=== PATIENT | female | born 1990 | race Two or more races ===

== ENCOUNTER 2019-11-06 18:44 | Inpatient (IN) | payer MEDICAID ==
[~2019-11-06] VITALS: Ht 149.9 cm; Wt 49.9 kg
[~2019-11-06 18:44] MED LIST: APRESOLINE50 MG ORAL; CARVEDILOL6.25 MG ORAL; COREG25 MG ORAL; FUROSEMIDE40 MG ORAL; HYDRALAZINE HCL10 MG ORAL; NORVASC5 MG ORAL; RENVELA800 MG ORAL
--- NOTE | 2019-11-06 19:01 | NUR ---
ED Nurse Note: Pt was brought to ed on ; pt used her own wheel chair to get into ed. pt has a julianne cath on upper right chest and a right femoral picc line. pt dialsysis schedule ; pt missed saturday diaylsis appointment. pt report bilateral leg pain. edema noted on both lower extremies. pt is irritable.
[2019-11-06 19:03] VITALS: BP 151/111
--- NOTE | 2019-11-06 19:05 | NUR ---
HAND-OFF: Report given to nabila neal.
--- NOTE | 2019-11-06 19:05 | NUR ---
ED Nurse Note: abdomen distended. pt has history of peritonitis
--- NOTE | 2019-11-06 19:13 | Emergency Room Report ---
History of Present Illness General Chief Complaint: Edema Source: Patient Present Illness HPI Disclaimer: Please note that this report is being documented using DRAGON technology. This can lead to erroneous entry secondary to incorrect interpretation by the dictating instrument. HPI: 29-year-old female with a history of ESRD on hemodialysis MWF presents for evaluation of lower extremity pain and edema. Patient missed dialysis on Saturday has not had a for 4 days. She notes a bilateral lower extremity pain and swelling. Difficulty with ambulating. Also notes a distended and diffusely tender abdomen. She is complaining of some chest pain shortness of breath though she believes this is related to the distention in her abdomen. She has a history of ascites and has had SBP in the past. Has not had peritoneal dialysis for over a year according to patient. States she missed her dialysis because she could not arrange transportation. Denies fever, chills. Reports fatigue. Denies back pain, vomiting or diarrhea. PMH: ESRD PSH: Dialysis catheters Allergies: Toradol, Zosyn, tramadol, ceftriaxone Social Hx: Reviewed Allergies: Coded Allergies: METRONIDAZOLE (Verified Allergy, Intermediate, 06/24/19) Severe itching, SOB and swelling PIPERACILLIN (Verified Allergy, Intermediate, Itching, 06/24/19) Severe itching, SOB and swelling TAZOBACTAM (Verified Allergy, Intermediate, Itching, 06/24/19) Severe itching, SOB and swelling CEFTRIAXONE (Verified Allergy, Unknown, 06/23/19) KETOROLAC (Verified Allergy, Unknown, 06/23/19) TRAMADOL (Verified Allergy, Unknown, 06/23/19) Uncoded Allergies: contrast-oral and dye (Allergy, Severe, 06/29/19) seizures COVID-19 Screening Contact w/high risk pt: No Recent Travel to affected area: No Experienced COVID-19 symptoms?: No COVID-19 Testing performed SENIOR TELECOMMUNICATIONS TECHNICIAN: No Nursing Documentation-PMH Hx Hypertension: Yes Hx Dialysis: Yes - KIDNEY DISEASE Hx Seizures: Yes Review of Systems All Other Systems: negative except mentioned in HPI Physical Exam Vital Signs Date Time Temp Pulse Resp B/P (MAP) Pulse Ox O2 Delivery O2 Flow Rate FiO2 11/06/19 18:55 98.1 93 16 151/111 (124) 100 Room Air General: Awake and alert, no acute distress HEENT: NC/AT. EOMI. Chest wall: Dialysis catheter present in right chest. Cardiovascular: RRR. S1 and S2 normal. No murmur appreciated Resp: Normal work of breathing. No cough, wheezing or crackles appreciated Abdomen: Abdomen is significantly distended with bulging umbilicus that is easily reducible. Tense. Only mildly tender. Skin: Intact. No abrasions, laceration or rash over the exposed skin MSK: Normal tone and bulk. Moving all extremities. No obvious deformity. Neuro: Awake and alert. Mentating appropriately. Medical Decision Making Diagnostic Impression: Primary Impression: Ascites Additional Impressions: ESRD (end stage renal disease) on dialysis Hyperkalemia Volume overload ER Course 29-year-old female with a history of ESRD presents for evaluation of abdominal distention and pain as well as lower extremity swelling after missing dialysis this week. Concern for electrolyte abnormalities, peritonitis, fluid overload state as well as ACS, arrhythmia, pneumonia, bronchitis, liver failure to name a few. Bedside ultrasound of the abdomen shows moderate ascites. Patient initially consented and was agreeable to paracentesis to evaluate for SBP with then refused prior to procedure start. She is afebrile and I have little concern for SBP aside from patient's previous history and paracentesis also meant to be therapeutic as I believe her shortness of breath is likely related to her significant abdominal distention. Her last paracentesis was several weeks ago. Labs show slight elevation in potassium will be treated with calcium , insulin with dextrose. Patient states she is unable to have hemodialysis at her outpatient facility tomorrow. Will admit for further care and dialysis here. Laboratory Tests Test 11/06/19 19:17 White Blood Count 5.2 K/UL (4.8-10.8) Red Blood Count 2.86 M/UL (4.20-5.40) L Hemoglobin 8.7 G/DL (12.0-16.0) L Hematocrit 29.4 % (37.0-47.0) L Mean Corpuscular Volume 103 FL (80-99) H Mean Corpuscular Hemoglobin 30.6 PG (27.0-31.0) Mean Corpuscular Hemoglobin Concent 29.8 G/DL (32.0-36.0) L Red Cell Distribution Width 16.3 % (11.6-14.8) H Platelet Count 178 K/UL (150-450) Mean Platelet Volume 7.7 FL (6.5-10.1) Neutrophils (%) (Auto) 67.1 % (45.0-75.0) Lymphocytes (%) (Auto) 21.7 % (20.0-45.0) Monocytes (%) (Auto) 10.6 % (1.0-10.0) H Eosinophils (%) (Auto) 0.0 % (0.0-3.0) Basophils (%) (Auto) 0.6 % (0.0-2.0) Prothrombin Time 12.9 SEC (9.30-11.50) H Prothrombin Time INR 1.2 (0.9-1.1) H Activated Partial Thromboplast Time 32 SEC (23-33) Sodium Level 140 MMOL/L (136-145) Potassium Level 5.3 MMOL/L (3.5-5.1) H Chloride Level 102 MMOL/L (98-107) Carbon Dioxide Level 22 MMOL/L (21-32) Anion Gap 16 mmol/L (5-15) H Blood Urea Nitrogen 88 mg/dL (7-18) H Creatinine 10.0 MG/DL (0.55-1.30) H Estimated Glomerular Filtration Rate 4.6 mL/min (>60) Glucose Level 107 MG/DL (74-106) H Calcium Level 8.6 MG/DL (8.5-10.1) Total Bilirubin 0.5 MG/DL (0.2-1.0) Aspartate Amino Transferase (AST) 25 U/L (15-37) Alanine Aminotransferase (ALT) 16 U/L (12-78) Alkaline Phosphatase 274 U/L (46-116) H Troponin I 0.123 ng/mL (0.000-0.056) Pro-B-Type Natriuretic Peptide Pending Total Protein 6.2 G/DL (6.4-8.2) L Albumin 2.6 G/DL (3.4-5.0) L Globulin 3.6 g/dL Albumin/Globulin Ratio 0.7 (1.0-2.7) L EKG Diagnostic Results EKG Time: 19:11 Rate: normal Rhythm: NSR ST Segments: no acute changes Other Impression Sinus rhythm, normal axis, slightly prolonged QTC at 41 ms, T wave flattening inferior lateral leads. Mild peaking of T waves in the precordial leads. Rhythm Strip Diag. Results Rhythm Strip Time: 19:11 EP Interpretation: yes Rate: 80s Rhythm: NSR, no PVC's, no ectopy Last Vital Signs Date Time Temp Pulse Resp B/P (MAP) Pulse Ox O2 Delivery O2 Flow Rate FiO2 11/06/19 19:03 93 16 Room Air 11/06/19 19:03 98.1 151/111 100 Referrals: [facility],REFERRING (PCP) Gerald Benitez MD November 06, 2019 19:13
--- NOTE | 2019-11-06 19:30 | NUR ---
ED Nurse Note: pt falls asleep on exam, appears drowsy
--- NOTE | 2019-11-06 19:35 | NUR ---
ED Nurse Note: pt repeatedly calls for nurse, requesting pain meds. ERMD and RN have explained to pt plan of care multiple times, pt continues to call for nurse and ask for pain medication.
[2019-11-06 19:36] LABS: BASOPHILS % (AUTO) 0.6 % (0.0-2.0); HEMATOCRIT 29.4 % (37.0-47.0); HEMOGLOBIN 8.7 G/DL (12.0-16.0); LYMPHOCYTES % (AUTO) 21.7 % (20.0-45.0); MEAN CORPUSCULAR VOLUME 103 FL (80-99); MONOCYTES % (AUTO) 10.6 % (1.0-10.0); NEUTROPHILS % (AUTO) 67.1 % (45.0-75.0); PLATELET COUNT 178 K/UL (150-450); RED BLOOD COUNT 2.86 M/UL (4.20-5.40); RED CELL DISTRIBUTION WIDTH 16.3 % (11.6-14.8); WHITE BLOOD COUNT 5.2 K/UL (4.8-10.8)
[2019-11-06 19:48] LABS: ANION GAP 16 mmol/L (5-15); BLOOD UREA NITROGEN 88 mg/dL (7-18); CALCIUM 8.6 MG/DL (8.5-10.1); CARBON DIOXIDE 22 MMOL/L (21-32); CHLORIDE 102 MMOL/L (98-107); POTASSIUM 5.3 MMOL/L (3.5-5.1); SODIUM 140 MMOL/L (136-145)
[2019-11-06 19:57] LABS: INR 1.2 (0.9-1.1)
--- NOTE | 2019-11-06 19:57 | NUR ---
ED Nurse Note: US and paracentesis set up at pt bedside per ERMD instruction
[2019-11-06 19:58] LABS: ALANINE AMINOTRANSFERASE 16 U/L (12-78); ALBUMIN 2.6 G/DL (3.4-5.0); ALBUMIN/GLOBULIN RATIO 0.7 (1.0-2.7); ALKALINE PHOSPHATASE 274 U/L (46-116); ASPARTATE AMINO TRANSFERASE 25 U/L (15-37); BILIRUBIN,TOTAL 0.5 MG/DL (0.2-1.0)
--- NOTE | 2019-11-06 20:00 | NUR ---
ED Nurse Note: pt signed consent form for paracentesis, still appears to be drowsy, VSS on monitoring analyst
[2019-11-06] MEDS ORDERED: Morphine Sulfate 4mg/ml Inj (IV USE ONLY) ONE (20:19)
[2019-11-06] MEDS ORDERED: Morphine Sulfate 4mg/ml Inj (IV USE ONLY) IVP ONE (20:30)
--- NOTE | 2019-11-06 20:30 | NUR ---
ED Nurse Note: pt refusing all swabs- VRE, CRE & MRSA. states that she is "in a lot of pain"
--- NOTE | 2019-11-06 20:40 | NUR ---
ED Nurse Note: pt refusing paracentesis, states she needs dilaudid. pt has been medicated with morphine 4 mg IV, appears to be drowsy
[2019-11-06] MEDS ORDERED: Insulin Human Regular 100units/ml 3ml IV ONE (21:00)
[2019-11-06] MEDS ORDERED: Calcium Gluconate 1gm/10ml vial IVP ONE (21:00)
--- NOTE | 2019-11-06 21:12 | NUR ---
ED Nurse Note: pt has a potassium level of 5.3, ERMD ordered dextrose, calcium gluconate and insulin as seen in eMAR,. pt refusing these medications stating "they give me a headache, a potassium of 5.3 is not high" pt was educated on risks of refusing meds. she verbalized understanding and continues to refuse meds
[2019-11-06 21:17] VITALS: BP 147/99
--- NOTE | 2019-11-06 21:48 | NUR ---
Face sheet, EKG, dictation and nurses notes faxed to Sara Gupta(leather case finisher) @[phone] as requested.
--- NOTE | 2019-11-07 | NUR ---
ED Nurse Note: report given to Tele Charge nurse DAVID Milian
[2019-11-07] MEDS ORDERED: Miralax 17gm pkt ORAL PRN (01:30)
[2019-11-07] MEDS ORDERED: Zolpidem 5mg tab ORAL PRN (01:30)
--- NOTE | 2019-11-07 01:30 | NUR ---
NURSE NOTES: Received patient from ED, Refused gown, refusing assessment, refused wearing a monitoring tech despite education regarding importance especially with potassium leveo
--- NOTE | 2019-11-07 01:40 | NUR ---
Nurse notes: Dr Schaeffer is only giving tylenol for pain. No MD order for a stronger pain med to be given, MD aware. Pt is upset that she is not receiving something stronger for pain. Educated pt that has ordered tylenol for pain
[2019-11-07 04:00] VITALS: BP 142/100
--- NOTE | 2019-11-07 08:05 | NUR ---
NURSE NOTES: pt sitting on wheel chair watching TV, AOx4. Pt is complaining of pain. Pt refusing to wear bi specialist. Bed in lowest position and locked, call light within reach. Will continue to monitor pt.
--- NOTE | 2019-11-07 08:40 | NUR ---
NURSE NOTES: pt is refusing to get vitals signs by HYDROLOGIC MODELER. RN asked to do vitals and she also refused.
--- NOTE | 2019-11-07 09:15 | NUR ---
NURSE NOTES: pt refused medication stating pills are too big. educated pt on medication and benefits but pt still refused. she also refused to eat breakfast and just had juice.
--- NOTE | 2019-11-07 11:21 | History & Physical ---
History and Physical History & Physicial HP dictated #[id number] Jose Schaeffer MD November 07, 2019 11:21
[2019-11-07] MEDS: Nephrovite tab (Rena-Vite) ORAL SCH (12:13)
[2019-11-07] MEDS: Morphine Sulfate 2mg/ml Inj(IV/IM USE ONLY) IVP PRN ×2 (12:14→16:38)
--- NOTE | 2019-11-07 12:14 | NUR ---
NURSE NOTES: Scanner is not working, had to manually administer med.
[2019-11-07 12:42] VITALS: BP 135/98
[2019-11-07] MEDS: Renvela 800mg Pkt ORAL SCH ×2 (13:00→14:11)
[2019-11-07 16:00] VITALS: BP_SYST 131; BP_SYST 142; BP_DIAS 63; BP_DIAS 93
--- NOTE | 2019-11-07 16:28 | Consultation ---
Consult Note Assessment/Plan Cardiology for Dr. Rios Full consult dictated # [id number] Юлия Ruff MD November 07, 2019 16:28
[2019-11-07] MEDS ORDERED: Morphine Sulfate 2mg/ml Inj(IV/IM USE ONLY) IVP SCH ×2 (18:30)
--- NOTE | 2019-11-07 18:30 | NUR ---
NURSE NOTES: pt started complaining of more pain and refused dialysis unless she gets a second dose of Morphine. pt is complaining of stomach ache and falling sleep at the same time. communicated to deepali Schaeffer and he ordered another dose of Morphin 2mg/ml once. pt started dialysis right after
--- NOTE | 2019-11-07 19:29 | NUR ---
HAND-OFF: copy of Report left for nurse Mary Jane?/ RN
--- NOTE | 2019-11-07 19:30 | NUR ---
NURSE NOTES: pt sitting up in bed,on her phone, AOx4. Pt is complaining of pain. Pt refusing to wear hematology nurse. Bed in lowest position and locked, alarm on, fall precautions in place. Patient appears drowsy at this time. call light within reach. Will continue to monitor pt. Dialysis was completed and dialysis nurse remove 2300 mL Pt requested dialysis to be discontinued because she said she felt dizzy. Vital signs are stable at this time
[2019-11-07 20:00] VITALS: BP 148/85
--- NOTE | 2019-11-07 21:29 | History and Physical Report ---
DATE OF ADMISSION: 11/06/2019 CHIEF COMPLAINT: Shortness of breath, abdominal pain, leg pain and chest pain. HISTORY OF PRESENT ILLNESS: This is a 29-year-old female with history of end-stage renal disease, on hemodialysis every Saturday, Saturday, and Saturday. Apparently, she received dialysis last Saturday, which is 4 days prior to admission. She missed dialysis on Saturday. Apparently, she was supposed to go to the new unit, but the transportation did not show up. The patient has been getting short of breath mostly with exertion. She has also orthopnea. She had also some chest pain. She says that when the blood pressure goes up, she did start getting chest pain. She has also leg swelling and pain and abdominal pain. She has had ascites before and in the emergency room, they offered paracentesis, however, she refused later because she said that she was scared. The patient was admitted for further care, especially dialysis. PAST MEDICAL HISTORY: The patient says that she used to be on peritoneal dialysis, but then there was a problem. They had to remove the catheter in. Since then, she has had developed ascites. I am still not sure what the etiology of ascites is. Nevertheless, the patient has had paracentesis before. She is being dialyzed through a hemodialysis catheter. Previously, she had a shunt under left arm, but it failed and she did not want to have a new one. The patient states that she had preeclampsia before. She had a son, which 3 months later. 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 She was apparently diagnosed when she was a teenager. History of seizures. MEDICATIONS: Reviewed in CS link. SOCIAL HISTORY: No history of smoking or alcohol use. The patient is and lives with . ALLERGIES: Reported to metronidazole, piperacillin, tazobactam, ceftriaxone, ketorolac, tramadol, and oral contrast. REVIEW OF SYSTEMS: As above. PHYSICAL EXAMINATION: GENERAL: The patient is a 29-year-old female, in no acute distress. She does have pain in her legs. VITAL SIGNS: Blood pressure 142/100, pulse is 98, temperature 97.9, respiratory is 20. HEENT: Pale conjunctivae. Anicteric sclerae. NECK: Supple. LUNGS: Clear to auscultation. HEART: S1, S2 without murmurs or rubs. ABDOMEN: Distended. The patient has a umbilical hernia. The patient has diffuse tenderness. EXTREMITIES: Bilateral pedal edema. LABORATORY DATA: The CBC shows elevated WBC of 5200, hematocrit 29.4, hemoglobin is 8.7, platelets 178,000. Sodium 140, potassium 5.3, chloride 102, CO2 22, BUN is 88, creatinine 10, glucose is 107, calcium is 8.6., and albumin is 2.6. ASSESSMENT: This is a 29-year-old female with end-stage renal disease, on hemodialysis, supposed to be on dialysis every Saturday, Saturday, and Saturday. She was dialysis last Saturday, last dialysis was 5 days ago. She has significant ascites on physical exam. Abdominal pain is likely from ascites. In addition, she is short of breath from fluid overload as well as ascites, which pushes toward her diaphragm. She has significant leg edema again consistent with fluid overload. She is anemic from chronic kidney disease. Iron deficiency needs to be ruled out. PLAN: The patient will be dialyzed today. Cardiology consult will be obtained to optimize certain medications. I will also ask GI to see the patient. She will need paracentesis if she agrees. She will be on Epogen. Iron panel will be checked. She will be on Nephro-Se daily. Plan was discussed with the patient as well as with the RN. Jose Schaeffer M.D. DR: Bakari JOB#: [id number] CC:
[2019-11-08] VITALS: BP 140/91
--- NOTE | 2019-11-08 00:44 | Consultation ---
DATE OF CONSULTATION: 11/07/2019 CARDIOLOGY CONSULTATION Coverage for Kristofer Rios MD REASON FOR CONSULT: Heart failure, status post ICD. HISTORY OF PRESENT ILLNESS: The patient is a 29-year-old woman with a history of end-stage renal disease, on chronic hemodialysis, history of ascites, previous peritonitis, hypertension, seizures, and heart failure, status post single-chamber ICD ([employer]) at [facility]. She is admitted with abdominal pain and tenderness as well as lower extremity pain, she had missed dialysis treatment. She was admitted for further treatment and Cardiology followup was requested. She denies chest pain or dyspnea. She denies palpitations, dizziness, or syncope. She does report having had recent shocks for rapid heartbeat. Records are not available, but it appears that these may have been inappropriate defibrillator shocks. MEDICATIONS: Epogen, subcutaneous heparin, Renvela, morphine, vitamin B, clonidine, Tylenol, Zofran, and Ambien. ALLERGIES: Listed are allergies to multiple antibiotics including ceftriaxone, metronidazole, piperacillin, and tazobactam as well as Toradol and tramadol, contrast dye. PAST MEDICAL HISTORY: As noted above. SOCIAL HISTORY: No history of alcohol, tobacco, or drug use. REVIEW OF SYSTEMS: As per HPI. PHYSICAL EXAMINATION: VITAL SIGNS: Blood pressure is 135/98, earlier today 142/100; pulse 80, regular; respirations 18; afebrile; and oxygen saturation 95% on room air. GENERAL: Alert, well-developed woman, in no acute distress. HEENT: Normocephalic and atraumatic. Pupils are equal, round, and reactive to light. Sclerae anicteric. Oral mucosa are moist. NECK: Supple. There is no jugular venous distention. CHEST: There is an ICD generator palpable in the left chest. Hemodialysis catheter in the right subclavian. LUNGS: Clear to auscultation bilaterally. HEART: Regular S1 and S2. No murmurs or S3. ABDOMEN: Distended, tender with a reducible 2 to 3 cm umbilical hernia. Positive ascites. Generalized abdominal tenderness. SKIN: No rashes or lesions. EXTREMITIES: No cyanosis, clubbing, or edema. NEUROLOGIC: Alert and oriented x3. No focal motor deficits. LABORATORY DATA: Hemoglobin 8.7, white cell count 5200, and platelets 178,000. Sodium 140, potassium 5.3, chloride 102, bicarb 22, BUN 88, creatinine 10. Troponin 0.123. IMAGING STUDIES: Chest x-ray shows a single-chamber ICD with a lead entering from the left subclavian into the right ventricular apex. There is cardiomegaly and possible left pleural effusion (ICD generator) overlying the left lower chest wall. EKG shows sinus rhythm, rate of 88 beats per minute. Normal axis and intervals. T-wave inversion in V5 through V6. No old EKG available for comparison. ASSESSMENT AND RECOMMENDATIONS: The patient is a 29-year-old woman with a history of multiple chronic medical issues as outlined above, who was admitted with abdominal pain and nausea after having missed dialysis treatments for a few days. She has ascites and abdominal tenderness. There is concern for peritonitis. This is being evaluated as per her primary team. With regard to her cardiac status, she does not appear with acute pulmonary congestion. She does have an implantable defibrillator and indicates previous shocks, possible inappropriate shocks recently. I will arrange for ICD interrogation and we will make further recommendations based on the results. She does have a mildly elevated troponin, but no ischemic changes on EKG. The troponin elevation may be due to chronic kidney disease and does not require further evaluation. I will obtain, however an echo, but no ischemic EKG changes or anginal symptoms. The elevated troponin may be due to chronic kidney disease. I will obtain an echo to assess left ventricular function and valves. Further recommendations will be made based on the results of above testing and her clinical course. Dr. Rios will continue to follow her starting 11/09/2019. Юлия Ruff M.D. DR: EDYTA JOB#: [id number] CC:
[2019-11-08] MEDS: Morphine Sulfate 4mg/ml Inj (IV USE ONLY) IVP PRN ×3 (01:02→13:54)
[2019-11-08] MEDS ORDERED: Heparin Sod 1000 units/ml 10ml IV PRN (01:30)
--- NOTE | 2019-11-08 07:45 | NUR ---
NURSE NOTES: pt sitting in bed and refusing awake overnight monitor even after education was done, explained to her how important this is and this is how we monitor her heart rhythm pt still insist on takin monitor off after we put it back on her. Pt also is refusing blood pressure assessment. After educating her on why we need V/s, she allowed PHARMACEUTICAL LABORATORY TECHNICIAN to do it. Call light within reach bed locked and in lowest position. Pt is not complaining of pain at this time. Will continue to monitor.
[2019-11-08 08:00] VITALS: BP_SYST 129; BP_SYST 147; BP_DIAS 107; BP_DIAS 53
--- NOTE | 2019-11-08 08:00 | NUR ---
HAND-OFF: Report given to DAVID Stewart.
--- NOTE | 2019-11-08 08:41 | General Progress Note ---
Assessment/Plan Problem List: (1) Anemia ICD Codes: D64.9 - Anemia, unspecified SNOMED: 818842572 (2) ESRD (end stage renal disease) on dialysis ICD Codes: N18.6 - End stage renal disease; Z99.2 - Dependence on renal dialysis SNOMED: 529227511 (3) Volume overload ICD Codes: E87.70 - Fluid overload, unspecified SNOMED: 35088810 (4) Ascites ICD Codes: R18.8 - Other ascites SNOMED: 692814918 (5) Abdominal pain ICD Codes: R10.9 - Unspecified abdominal pain SNOMED: 16502527 Assessment/Plan: ordered paracentesis and fluid analysis ? renal ascites will fu Subjective ROS Limited/Unobtainable: Yes Allergies: Coded Allergies: METRONIDAZOLE (Verified Allergy, Intermediate, 06/24/19) Severe itching, SOB and swelling PIPERACILLIN (Verified Allergy, Intermediate, Itching, 06/24/19) Severe itching, SOB and swelling TAZOBACTAM (Verified Allergy, Intermediate, Itching, 06/24/19) Severe itching, SOB and swelling CEFTRIAXONE (Verified Allergy, Unknown, 06/23/19) KETOROLAC (Verified Allergy, Unknown, 06/23/19) TRAMADOL (Verified Allergy, Unknown, 06/23/19) Uncoded Allergies: contrast-oral and dye (Allergy, Severe, 06/29/19) seizures Objective Last 24 Hour Vital Signs Date Time Temp Pulse Resp B/P (MAP) Pulse Ox O2 Delivery O2 Flow Rate FiO2 11/08/19 08:00 97.7 81 20 147/107 (120) 95 11/08/19 05:39 97.0 11/08/19 04:00 90 11/08/19 02:09 89 11/08/19 00:00 98.1 84 17 140/91 (107) 98 11/07/19 22:02 95 11/07/19 21:00 Room Air 11/07/19 20:00 77 18 148/85 (106) 11/07/19 16:00 97.0 86 18 142/93 (109) 99 11/07/19 12:42 97.3 80 18 135/98 (110) 95 11/07/19 09:00 Room Air Intake and Output 11/07/19 11/08/19 19:00 07:00 Intake Total 500 ml Output Total 4000 ml Balance 500 ml -4000 ml Intake Oral 500 ml Hemodialysis UF 4000 ml # Voids 1 # Bowel Movements 1 Laboratory Tests 11/07/19 09:00: Hepatitis B Surface Antigen [Pending] Height (Feet): 4 Height (Inches): 11.00 Weight (Pounds): 98 General Appearance: alert EENT: pale conjunctivae Neck: supple Cardiovascular: normal rate Respiratory/Chest: decreased breath sounds Abdomen: soft, hypoactive bowel sounds, distended Extremities: non-tender Liu Lai MD November 08, 2019 08:41
[2019-11-08] MEDS: Morphine Sulfate 2mg/ml Inj(IV/IM USE ONLY) IVP PRN ×3 (09:22→22:03)
[2019-11-08] MEDS: Renvela 800mg Pkt ORAL SCH ×3 (09:22→17:56)
[2019-11-08] MEDS: Nephrovite tab (Rena-Vite) ORAL SCH (09:22)
[2019-11-08 09:39] LABS: % IRON SATURATION 41 % (15-50); IRON 68 ug/dL (50-175); TOTAL IRON BINDING CAPACITY 165 ug/dL (250-450)
[2019-11-08 10:01] LABS: ALANINE AMINOTRANSFERASE 14 U/L (12-78); ALBUMIN 2.5 G/DL (3.4-5.0); ALBUMIN/GLOBULIN RATIO 0.6 (1.0-2.7); ALKALINE PHOSPHATASE 271 U/L (46-116); ANION GAP 15 mmol/L (5-15); ASPARTATE AMINO TRANSFERASE 19 U/L (15-37); BILIRUBIN,TOTAL 0.4 MG/DL (0.2-1.0); BLOOD UREA NITROGEN 79 mg/dL (7-18); CALCIUM 7.5 MG/DL (8.5-10.1); CARBON DIOXIDE 25 MMOL/L (21-32); CHLORIDE 101 MMOL/L (98-107); POTASSIUM 4.7 MMOL/L (3.5-5.1); SODIUM 141 MMOL/L (136-145)
[2019-11-08 12:00] VITALS: BP 140/101
--- NOTE | 2019-11-08 12:16 | NUR ---
NURSE NOTES: contacted [facility] [phone] ext [phone], fax [phone] they are ready to fax medical records. However, pt refusing to sign consent, claiming that she doesn't want her records to be release because they didn't do any test to check her heart while that admission.
--- NOTE | 2019-11-08 13:38 | General Progress Note ---
Assessment/Plan Problem List: (1) ESRD (end stage renal disease) on dialysis ICD Codes: N18.6 - End stage renal disease; Z99.2 - Dependence on renal dialysis SNOMED: 310112232 (2) Ascites ICD Codes: R18.8 - Other ascites SNOMED: 210545191 (3) Anemia ICD Codes: D64.9 - Anemia, unspecified SNOMED: 748311314 (4) Volume overload ICD Codes: E87.70 - Fluid overload, unspecified SNOMED: 77436590 Assessment/Plan: HD tomorrow paracentesis pulm and cardiology consult Discussed with HD RN Subjective Allergies: Coded Allergies: METRONIDAZOLE (Verified Allergy, Intermediate, 06/24/19) Severe itching, SOB and swelling PIPERACILLIN (Verified Allergy, Intermediate, Itching, 06/24/19) Severe itching, SOB and swelling TAZOBACTAM (Verified Allergy, Intermediate, Itching, 06/24/19) Severe itching, SOB and swelling CEFTRIAXONE (Verified Allergy, Unknown, 06/23/19) KETOROLAC (Verified Allergy, Unknown, 06/23/19) TRAMADOL (Verified Allergy, Unknown, 06/23/19) Uncoded Allergies: contrast-oral and dye (Allergy, Severe, 06/29/19) seizures Subjective still can not lay down SOB Objective Last 24 Hour Vital Signs Date Time Temp Pulse Resp B/P (MAP) Pulse Ox O2 Delivery O2 Flow Rate FiO2 11/08/19 08:55 Room Air 11/08/19 08:00 97.7 81 20 147/107 (120) 95 11/08/19 08:00 79 11/08/19 05:39 97.0 11/08/19 04:00 90 11/08/19 02:09 89 11/08/19 00:00 98.1 84 17 140/91 (107) 98 11/07/19 22:02 95 11/07/19 21:00 Room Air 11/07/19 20:00 77 18 148/85 (106) 11/07/19 16:00 97.0 86 18 142/93 (109) 99 Intake and Output 11/07/19 11/08/19 19:00 07:00 Intake Total 500 ml Output Total 4000 ml Balance 500 ml -4000 ml Intake Oral 500 ml Hemodialysis UF 4000 ml # Voids 1 # Bowel Movements 1 Laboratory Tests 11/08/19 07:30: Body Fluid Total Protein [Pending], Sodium Level 141, Potassium Level 4.7, Chloride Level 101, Carbon Dioxide Level 25, Anion Gap 15, Blood Urea Nitrogen 79H, Creatinine 9.0H, Estimat Glomerular Filtration Rate 5.2, Glucose Level 96, Calcium Level 7.5L, Iron Level 68, Total Iron Binding Capacity 165L, Percent Iron Saturation 41, Unsaturated Iron Binding 97L, Total Bilirubin 0.4, Aspartate Amino Transf (AST/SGOT) 19, Alanine Aminotransferase (ALT/SGPT) 14, Alkaline Phosphatase 271H, Total Protein 6.4, Albumin 2.5L, Globulin 3.9, Albumin/Globulin Ratio 0.6L, Thyroid Stimulating Hormone (TSH) 3.262 Height (Feet): 4 Height (Inches): 11.00 Weight (Pounds): 98 Cardiovascular: normal rate Respiratory/Chest: lungs clear Abdomen: distended, hernia Edema: 2+ Generalized Jose Schaeffer MD November 08, 2019 13:38
[2019-11-08 16:00] VITALS: BP 148/106
[2019-11-08 16:08] LABS: INR 1.2 (0.9-1.1)
--- NOTE | 2019-11-08 16:35 | Cardiology Progress Note ---
Assessment/Plan Problem List: (1) ICD (implantable cardioverter-defibrillator) in place (2) ESRD (end stage renal disease) on dialysis (3) Ascites (4) Anemia Status: stable, unchanged Status Narrative Ms Garcia has ESRD,on dialysis, cardiomyopathy, s/p ICD. She has ascites, possible peritonitis. Her ICD was interrogated yesterday: [employer] Dynagen implanted 2014. on 09/30 - an episode of VT 166 bpm detected - terminated w/ ATP ( electrograms not in chart) and on 09/22 - 5 detections o fVT at 165 -166bpm - treated w/ atp x4 followed by shocks total of 19 from 14:42 to 14:56 . The initial rhythm appears to be sinus tachycardia, followed by a wide complex rhythm, (after shocks, on shock lead). Assessment/Plan She is now agreeable to paracentesis, diagnostic and therapeutic. HD per Dr. Schaeffer Will attempt to obtain records of previous cardiac testing. If she has not had VT at slower rates, would increase VT detect rate to 190 or 200, to avoid inappropriate therapies for sinus tachycardia. Subjective ROS Limited/Unobtainable: No Subjective Ms. Garcia c/o abd pain. No chest pain or dyspnea Objective Last 24 Hour Vital Signs Date Time Temp Pulse Resp B/P (MAP) Pulse Ox O2 Delivery O2 Flow Rate FiO2 11/08/19 16:00 97 11/08/19 12:00 96.8 85 18 140/101 (114) 98 11/08/19 12:00 86 11/08/19 08:55 Room Air 11/08/19 08:00 97.7 81 20 147/107 (120) 95 11/08/19 08:00 79 11/08/19 05:39 97.0 11/08/19 04:00 90 11/08/19 02:09 89 11/08/19 00:00 98.1 84 17 140/91 (107) 98 11/07/19 22:02 95 11/07/19 21:00 Room Air 11/07/19 20:00 77 18 148/85 (106) General Appearance: WD/WN, alert, mild distress EENT: PERRL/EOMI Neck: no JVD Rhythm: NSR Cardiovascular: normal rate, regular rhythm, systolic murmur, other - RRR s1s2 +gallop Respiratory/Chest: lungs clear Abdomen: normal bowel sounds, soft, other - distended, +ascites. Diffuse tenderness Extremities: no swelling Intake and Output 11/07/19 11/08/19 19:00 07:00 Intake Total 500 ml Output Total 4000 ml Balance 500 ml -4000 ml Intake Oral 500 ml Hemodialysis UF 4000 ml # Voids 1 # Bowel Movements 1 Laboratory Tests Test 11/08/19 07:30 11/08/19 15:35 Body Fluid Total Protein Pending Sodium Level 141 MMOL/L (136-145) Potassium Level 4.7 MMOL/L (3.5-5.1) Chloride Level 101 MMOL/L (98-107) Carbon Dioxide Level 25 MMOL/L (21-32) Anion Gap 15 mmol/L (5-15) Blood Urea Nitrogen 79 mg/dL (7-18) H Creatinine 9.0 MG/DL (0.55-1.30) H Estimat Glomerular Filtration Rate 5.2 mL/min (>60) Glucose Level 96 MG/DL (74-106) Calcium Level 7.5 MG/DL (8.5-10.1) L Iron Level 68 ug/dL (50-175) Total Iron Binding Capacity 165 ug/dL (250-450) L Percent Iron Saturation 41 % (15-50) Unsaturated Iron Binding 97 ug/dL (112-346) L Total Bilirubin 0.4 MG/DL (0.2-1.0) Aspartate Amino Transf (AST/SGOT) 19 U/L (15-37) Alanine Aminotransferase (ALT/SGPT) 14 U/L (12-78) Alkaline Phosphatase 271 U/L (46-116) H Total Protein 6.4 G/DL (6.4-8.2) Albumin 2.5 G/DL (3.4-5.0) L Globulin 3.9 g/dL Albumin/Globulin Ratio 0.6 (1.0-2.7) L Thyroid Stimulating Hormone (TSH) 3.262 uiU/mL (0.358-3.740) Prothrombin Time 12.6 SEC (9.30-11.50) H Prothromb Time International Ratio 1.2 (0.9-1.1) H Activated Partial Thromboplast Time 31 SEC (23-33) Юлия Ruff MD November 08, 2019 16:35
--- NOTE | 2019-11-08 18:16 | NUR ---
NURSE NOTES: scheduled dialysis with [facility] for before noon because pt will be having paracentesis sometime tomorrow after 12.
--- NOTE | 2019-11-08 19:19 | NUR ---
HAND-OFF: Report given to Nancy/nabila pt will have dialysis before paracentesis, pt in stable condition.
--- NOTE | 2019-11-08 19:34 | NUR ---
NURSE NOTES: Report given by DAVID douglas- assigned changed report given to Yeny HERNANDEZ- pt. remains stable and no signs of distress noted
[2019-11-08 20:00] VITALS: BP 139/107
--- NOTE | 2019-11-08 20:17 | NUR ---
NURSE NOTES: Received report from DAVID Cruz. Patient is awake, alert and oriented x 4. On room air with no shortness or difficulty of breathing reported, saturating 96%. On a renal diet, instructed and amenable. quality assurance monitor chassis is in placed, shows sinus rhythm with no chest pain at this time. Patient is on fall precaution. Gutierrez catheter is in placed, IV site is right femoral triple lumen that is patent and intact, permacath on right side for dialysis. Safety measures are in placed, bed in lowest and lock position. Call light and bedside table within reach, instructed to call for any assistance needed.
[2019-11-09] VITALS: BP 154/113
[2019-11-09] MEDS: Morphine Sulfate 2mg/ml Inj(IV/IM USE ONLY) IVP PRN ×2 (02:06→06:19)
[2019-11-09 04:00] VITALS: BP 150/113
--- NOTE | 2019-11-09 07:35 | NUR ---
HAND-OFF: Report given to DAVID Galeano. Patiemnt is in stable condition, RN made aware of schedule dialysis today and paracentesis. Plan of care endorsed.
[2019-11-09 07:40] LABS: BASOPHILS % (AUTO) 0.7 % (0.0-2.0); EOSINOPHILS % (AUTO) 0.3 % (0.0-3.0); HEMATOCRIT 28.1 % (37.0-47.0); HEMOGLOBIN 9.2 G/DL (12.0-16.0); MEAN CORPUSCULAR VOLUME 94 FL (80-99); MONOCYTES % (AUTO) 11.5 % (1.0-10.0); NEUTROPHILS % (AUTO) 67.5 % (45.0-75.0); PLATELET COUNT 195 K/UL (150-450); RED BLOOD COUNT 2.98 M/UL (4.20-5.40); RED CELL DISTRIBUTION WIDTH 14.3 % (11.6-14.8); WHITE BLOOD COUNT 5.9 K/UL (4.8-10.8)
--- NOTE | 2019-11-09 07:54 | NUR ---
NURSE NOTES: Received report from Aziza/RN, Patient is awake A/O x4, lying semi-stuart's, resting comfortably. On room air, no acute distress/SOB noted. Denies pain at this time. PICC line on Right femoral, and Permcath on Right upper arm, patent, no bleeding or infiltration noted. Bed in low position and locked. Call light within reach. Encouraged to use call light when needed. Will continue plan of care.
[2019-11-09 08:22] LABS: ALANINE AMINOTRANSFERASE 16 U/L (12-78); ALBUMIN 2.8 G/DL (3.4-5.0); ALBUMIN/GLOBULIN RATIO 0.7 (1.0-2.7); ALKALINE PHOSPHATASE 267 U/L (46-116); ANION GAP 16 mmol/L (5-15); ASPARTATE AMINO TRANSFERASE 20 U/L (15-37); BILIRUBIN,TOTAL 0.4 MG/DL (0.2-1.0); BLOOD UREA NITROGEN 86 mg/dL (7-18); CALCIUM 8.3 MG/DL (8.5-10.1); CARBON DIOXIDE 25 MMOL/L (21-32); CHLORIDE 101 MMOL/L (98-107); POTASSIUM 5.1 MMOL/L (3.5-5.1); SODIUM 142 MMOL/L (136-145)
[2019-11-09] MEDS: Renvela 800mg Pkt ORAL SCH ×3 (08:55→18:00)
[2019-11-09] MEDS: Nephrovite tab (Rena-Vite) ORAL SCH (08:55)
--- NOTE | 2019-11-09 09:05 | NUR ---
*-* INSURANCE *-* ALL CLINICALS AND REVIEWS HAVE BEEN FAXED TO: [facility]:SADIA #[phone] ext [phone] P: [phone] Transition Teacher Dhruv Schwartz [phone] Addendum: 11/10/19 at 1019 by GONZALO ROBERTS CM *-* DISREGARD THIS DOCUMENTATION WRONG PATIENT *-*
--- NOTE | 2019-11-09 10:19 | NUR ---
*-* INSURANCE *-* ALL AVAILABLE CLINICALS HAVE BEEN FAXED TO: [facility]: SKYE REF# [id number] P: [phone] F: [phone] Addendum: 11/10/19 at 1021 by GONZALO ROBERTS CLINICALS ALSO SENT TO: [facility]HANA DOWNING:LAURA F: [phone]
[2019-11-09] MEDS: Morphine Sulfate 4mg/ml Inj (IV USE ONLY) IVP PRN ×3 (10:38→23:24)
[2019-11-09 10:40] VITALS: BP 152/118
--- NOTE | 2019-11-09 11:00 | NUR ---
NURSE NOTES: Patient refusing dressing to perma cath. Stating "I don't like the tegaderm. It's bad for my skin" and stating "I don't want you to clean it, just put gauze and tape". After discussing risks to having no dressing she stated "Okay you seem really concerned so I'll let you clean it". Cleaned with clorhexadine and patient allowed for stat lock to be placed. Dry gauze and paper tape applied.
--- NOTE | 2019-11-09 11:35 | NUR ---
CARDIOLOGY PT refused 2D Echo. She refused to go back to her bed because she had severe back pain. She kept sitting on her wheelchair.
--- NOTE | 2019-11-09 12:50 | General Progress Note ---
Assessment/Plan Status: stable, unchanged Assessment/Plan: Assessment - Ascites, needs w/u - ESRD - Anemia - umbilical hernia Recommendations - await paracentesis - consider more aggressive HD - analyze ascites fluid - monitor labs - fluid restriction Subjective Allergies: Coded Allergies: METRONIDAZOLE (Verified Allergy, Intermediate, 06/24/19) Severe itching, SOB and swelling PIPERACILLIN (Verified Allergy, Intermediate, Itching, 06/24/19) Severe itching, SOB and swelling TAZOBACTAM (Verified Allergy, Intermediate, Itching, 06/24/19) Severe itching, SOB and swelling CEFTRIAXONE (Verified Allergy, Unknown, 06/23/19) KETOROLAC (Verified Allergy, Unknown, 06/23/19) TRAMADOL (Verified Allergy, Unknown, 06/23/19) Uncoded Allergies: contrast-oral and dye (Allergy, Severe, 06/29/19) seizures Subjective seen this am c/o abdominal distention awaiting paracentesis wants 4 mg dilaudid to do the paracentesis Objective Last 24 Hour Vital Signs Date Time Temp Pulse Resp B/P (MAP) Pulse Ox O2 Delivery O2 Flow Rate FiO2 11/09/19 12:00 88 11/09/19 10:40 97.7 94 18 152/118 (129) 97 11/09/19 10:30 94 11/09/19 09:00 Room Air 11/09/19 08:56 93 150/113 11/09/19 04:00 98.3 96 19 150/113 (125) 96 11/09/19 04:00 93 11/09/19 02:15 154/113 11/09/19 01:10 90 11/09/19 00:00 98.1 95 20 154/113 (127) 95 11/08/19 21:20 93 139/100 11/08/19 21:00 Room Air 11/08/19 20:00 97.9 93 18 139/107 (118) 95 11/08/19 16:00 98.6 85 18 148/106 (120) 96 11/08/19 16:00 97 Intake and Output 11/08/19 11/09/19 19:00 07:00 Intake Total 600 ml Balance 600 ml Intake Oral 600 ml # Voids 15 # Bowel Movements 1 Laboratory Tests 11/08/19 15:35: Prothrombin Time 12.6H, Prothromb Time International Ratio 1.2H, Activated Partial Thromboplast Time 31 11/09/19 07:30: White Blood Count 5.9, Red Blood Count 2.98L, Hemoglobin 9.2L, Hematocrit 28.1L , Mean Corpuscular Volume 94, Mean Corpuscular Hemoglobin 31.1H, Mean Corpuscular Hemoglobin Concent 32.9, Red Cell Distribution Width 14.3, Platelet Count 195, Mean Platelet Volume 6.8, Neutrophils (%) (Auto) 67.5, Lymphocytes (% ) (Auto) 20.0, Monocytes (%) (Auto) 11.5H, Eosinophils (%) (Auto) 0.3, Basophils (%) (Auto) 0.7, Sodium Level 142, Potassium Level 5.1, Chloride Level 101, Carbon Dioxide Level 25, Anion Gap 16H, Blood Urea Nitrogen 86H, Creatinine 10.0H, Estimat Glomerular Filtration Rate 4.6, Glucose Level 101, Calcium Level 8.3L, Total Bilirubin 0.4, Aspartate Amino Transf (AST/SGOT) 20, Alanine Aminotransferase (ALT/SGPT) 16, Alkaline Phosphatase 267H, Total Protein 6.8, Albumin 2.8L, Globulin 4.0, Albumin/Globulin Ratio 0.7L Height (Feet): 4 Height (Inches): 11.00 Weight (Pounds): 113 Objective Thin woman NCAT supple CTA RR abd distended, tense, protruding umbilicus no edema nonfocal Elia Newton MD November 09, 2019 12:50
--- NOTE | 2019-11-09 13:06 | General Progress Note ---
Assessment/Plan Problem List: (1) ESRD (end stage renal disease) on dialysis ICD Codes: N18.6 - End stage renal disease; Z99.2 - Dependence on renal dialysis SNOMED: 008271510 (2) Ascites ICD Codes: R18.8 - Other ascites SNOMED: 533755200 (3) Anemia ICD Codes: D64.9 - Anemia, unspecified SNOMED: 316876622 (4) Volume overload ICD Codes: E87.70 - Fluid overload, unspecified SNOMED: 74752885 Status: stable, unchanged Assessment/Plan: HD today with no heparin paracentesis today pulm and cardiology F/U Discussed with RN Subjective Allergies: Coded Allergies: METRONIDAZOLE (Verified Allergy, Intermediate, 06/24/19) Severe itching, SOB and swelling PIPERACILLIN (Verified Allergy, Intermediate, Itching, 06/24/19) Severe itching, SOB and swelling TAZOBACTAM (Verified Allergy, Intermediate, Itching, 06/24/19) Severe itching, SOB and swelling CEFTRIAXONE (Verified Allergy, Unknown, 06/23/19) KETOROLAC (Verified Allergy, Unknown, 06/23/19) TRAMADOL (Verified Allergy, Unknown, 06/23/19) Uncoded Allergies: contrast-oral and dye (Allergy, Severe, 06/29/19) seizures Subjective still can not lay down SOB Objective Last 24 Hour Vital Signs Date Time Temp Pulse Resp B/P (MAP) Pulse Ox O2 Delivery O2 Flow Rate FiO2 11/09/19 12:00 88 11/09/19 10:40 97.7 94 18 152/118 (129) 97 11/09/19 10:30 94 11/09/19 09:00 Room Air 11/09/19 08:56 93 150/113 11/09/19 04:00 98.3 96 19 150/113 (125) 96 11/09/19 04:00 93 11/09/19 02:15 154/113 11/09/19 01:10 90 11/09/19 00:00 98.1 95 20 154/113 (127) 95 11/08/19 21:20 93 139/100 11/08/19 21:00 Room Air 11/08/19 20:00 97.9 93 18 139/107 (118) 95 11/08/19 16:00 98.6 85 18 148/106 (120) 96 11/08/19 16:00 97 Intake and Output 11/08/19 11/09/19 19:00 07:00 Intake Total 600 ml Balance 600 ml Intake Oral 600 ml # Voids 15 # Bowel Movements 1 Laboratory Tests 11/08/19 15:35: Prothrombin Time 12.6H, Prothromb Time International Ratio 1.2H, Activated Partial Thromboplast Time 31 11/09/19 07:30: White Blood Count 5.9, Red Blood Count 2.98L, Hemoglobin 9.2L, Hematocrit 28.1L , Mean Corpuscular Volume 94, Mean Corpuscular Hemoglobin 31.1H, Mean Corpuscular Hemoglobin Concent 32.9, Red Cell Distribution Width 14.3, Platelet Count 195, Mean Platelet Volume 6.8, Neutrophils (%) (Auto) 67.5, Lymphocytes (% ) (Auto) 20.0, Monocytes (%) (Auto) 11.5H, Eosinophils (%) (Auto) 0.3, Basophils (%) (Auto) 0.7, Sodium Level 142, Potassium Level 5.1, Chloride Level 101, Carbon Dioxide Level 25, Anion Gap 16H, Blood Urea Nitrogen 86H, Creatinine 10.0H, Estimat Glomerular Filtration Rate 4.6, Glucose Level 101, Calcium Level 8.3L, Total Bilirubin 0.4, Aspartate Amino Transf (AST/SGOT) 20, Alanine Aminotransferase (ALT/SGPT) 16, Alkaline Phosphatase 267H, Total Protein 6.8, Albumin 2.8L, Globulin 4.0, Albumin/Globulin Ratio 0.7L Height (Feet): 4 Height (Inches): 11.00 Weight (Pounds): 113 Neck: normal alignment Cardiovascular: normal rate Abdomen: distended Edema: 2+ Generalized Jose Schaeffer MD November 09, 2019 13:06
[2019-11-09] MEDS ORDERED: Heparin Sod 1000 units/ml 10ml IV ONE (13:45)
[2019-11-09] MEDS ORDERED: Heparin 1000 units/ml 1ml Vial INJ SCH (13:45)
[2019-11-09] MEDS ORDERED: Morphine Sulfate 4mg/ml Inj (IV USE ONLY) IVP SCH (14:15)
--- NOTE | 2019-11-09 15:33 | Pre-Procedure Note/Attestation ---
Pre-Procedure Note/Attestation Complete Prior to Procedure Planned Procedure: not applicable Procedure Narrative: US guided paracentesis Indications for Procedure Pre-Operative Diagnosis: ascites Attestation informed consent obtained by primary team, confirmed prior to procedure. Herman Villeda M.D. November 09, 2019 15:33
--- NOTE | 2019-11-09 15:50 | NUR ---
CASE MANAGEMENT:REVIEW 29 YR OLD FEMALE PRESENTED TO OUR ER VIA "LYFT " SERVICE AND HER OWN WHEELCHAIR CC: MISSED DIALYSIS ON SATURDAY (MWF). ABD PAIN. BLE SWELLING PMH: RU CHEST GURDEEP AND RT FEMORAL PICC SI: ASCITES. VOLUME OVERLOAD. HYPERKALEMIA 98.1 93 16 151/111 100% ON RA H/H-8.7/29.4 K+5.3 BUN+88 CR+10.0 TROPONIN(+)0.123 BNP>47548 IS: IV MORPHINE IV CA GLUCONATE IV INSULIN IV D50W : TO TELEMETRY
--- NOTE | 2019-11-09 15:52 | Diagnostic Imaging Report ---
Indications: Ascites Technique: Ultrasound used to localize optimal puncture site. Sterile prepping and draping left lower abdomen (including usage sterile ultrasound probe cover and sterile ultrasound gel). Local anesthesia with 1% lidocaine. Under real-time ultrasound guidance, puncture peritoneal space using paracentesis needle. Stylet removed. Catheter placed to vacuum bottle suction. Total 2.05 liters of fluid aspirated. Patient tolerated procedure well, without immediate complication. Findings: Followup sonography demonstrates complete resolution of peritoneal fluid. Impression: Successful ultrasound-guided paracentesis, yielding 2.05 liters of fluid.
--- NOTE | 2019-11-09 16:08 | NUR ---
CASE MANAGEMENT:REVIEW 11/09/19 SI: ESRD. FLUID OVERLOAD.ASCITES 97.7 94 18 152/118 97% ON RA H/H-9.2/28.1 BUN+86 CR+10.0 IS: IV MORPHINE 4MG Q4HRS PRN LOPRESSOR PO Q12 RENVELA PO TID : TELEMETRY Addendum: 11/09/19 at 1615 by ROXY PATHAK LVN LVN PLAN: US GUIDED PARACENTESIS
--- NOTE | 2019-11-09 19:29 | Consultation ---
DATE OF CONSULTATION: 11/09/2019 PULMONARY CONSULTATION CONSULTING PHYSICIAN: Flavio Rodriguez MD. HISTORY OF PRESENT ILLNESS: This is a 29-year-old female with a history of ESRD on hemodialysis. She came to the hospital with lower extremity edema. The patient had missed her dialysis and has not had it for several days on arrival. The patient is having difficulty ambulation, abdominal pain, and shortness of breath. In the past, the patient had ascites and SBP as well. The patient has not been on PD for over a year. PAST MEDICAL HISTORY: ESRD. Past history also notable for hypertension. PREVIOUS SURGERIES: Dialysis catheter placements. ALLERGIES: To Toradol, Zosyn, and ceftriaxone. REVIEW OF SYSTEMS: Denies any headaches, hematemesis, melena, hematochezia, night sweats, or weight loss. PHYSICAL EXAMINATION: VITAL SIGNS: Blood pressure at this time is 150/100, heart rate 94, respirations 26, afebrile. GENERAL: Reveals a 29-year-old petite female. HEENT: Unremarkable. CHEST: Shows decreased breath sounds bilaterally with normal heart sounds. There is a dialysis catheter in the right chest. ABDOMEN: Soft with mild distention. EXTREMITIES: There is 1+ edema. LABORATORY DATA: Lab testing shows hemoglobin 9.2. Creatinine of 10, potassium 5.1. X-ray of chest, not available. IMPRESSION: 1. ESRD, on dialysis. 2. Ascites. 3. pulmonary edema. DISCUSSION: The patient will need hemodialysis. We will request chest x-ray. Currently, she is saturating well on room air. 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 Flavio Rodriguez M.D. DR: FITO JOB#: [id number] CC:
--- NOTE | 2019-11-09 19:49 | NUR ---
HAND-OFF: Report given to Marianela. Patient stable. Plan of care endorsed.
[2019-11-09 20:00] VITALS: BP 137/101
--- NOTE | 2019-11-09 20:21 | NUR ---
NURSE NOTES: Received patient report from DAVID Pedraza. Patient AO x 4. Shows no signs of distress at the time. Asked for pain medication, but I informed her that her next dose is due at 0. Patient will no allow me to do a head to toe assessment. Will try again later. Right triple lumen intact. Bed in the lowest position, call light within reach, side rails up x 2. Will continue plan of care.
[2019-11-09] MEDS: Epoetin Alfa-EPBX(ESRD on dialysis)2000 units/ml vial SUBQ SCH ×2 (21:00→21:16)
[2019-11-09] MEDS: Epoetin Alfa-EPBX(ESRD on dialysis)3000 units/ml vial SUBQ SCH ×2 (21:00→21:16)
[2019-11-10] VITALS: BP 130/80
[2019-11-10] MEDS: Morphine Sulfate 4mg/ml Inj (IV USE ONLY) IVP PRN ×3 (03:47→13:20)
--- NOTE | 2019-11-10 07:30 | NUR ---
NURSE NOTES: Received report from DAVID Bear. Pt is sleeping and refused to connect leads for heart monitoring. pt is on RA. pt has intact iv access R femoral SL. pt has FARRAH PermCath. all needs attended, bed is locked and is in the lowest position. call light within easy reach. will continue to monitor.
--- NOTE | 2019-11-10 07:47 | NUR ---
HAND-OFF: Report given to DAVID Martinez. Patient shows no signs of distress or pain at the time. Endorsed plan of care.
[2019-11-10 08:00] VITALS: BP 156/105
[2019-11-10] MEDS: Renvela 800mg Pkt ORAL SCH ×3 (09:14→18:00)
[2019-11-10] MEDS: Nephrovite tab (Rena-Vite) ORAL SCH (09:14)
--- NOTE | 2019-11-10 09:45 | NUR ---
CASE MANAGEMENT:REVIEW 11/09/19 SI: ESRD. FLUID OVERLOAD.ASCITES S/P PARACENTESIS ~ 2L REMOVED 97.9 88 20 156/105 97% ON RA IS: IV MORPHINE 4MG Q4HRS PRN LOPRESSOR PO Q12 RENVELA PO TID EPOETIN SQ MWF ~ REFUSED NEPHROVITE PO QD CLONIDINE PO Q4HRS PRN : TELEMETRY DCP: FROM HOME PLAN: DIALYZE TODAY THEN DISCHARGE PER DR QUIROZ
--- NOTE | 2019-11-10 10:07 | NUR ---
RD ASSESSMENT & RECOMMENDATIONS SEE CARE ACTIVITY FOR COMPLETE ASSESSMENT DAILY ESTIMATED NEEDS: Needs based on ESRD, HD/47.7kg 30-35 kcals/kg [id number] total kcals 1.2-1.8 g protein/kg 57-86 g total protein Fluid per MD NUTRITION DIAGNOSIS: * Increased kcal/prot needs R/T ESRD dx as evidenced by pt is HD dep. CURRENT DIET:RENAL PO DIET RECOMMENDATIONS: RENAL + Nepro BID ADDITIONAL RECOMMENDATIONS: * Daily standing wt monitoring * High prot snacks in b/w meals * Add Nepro BID w/ variable PO intake (425kcal, 19g prot per pack) * Continue Nephrovite x 1 . .
--- NOTE | 2019-11-10 10:21 | NUR ---
*-* INSURANCE *-* UPDATED CLINICALS AND REVIEWS HAVE BEEN FAXED TO: MARY PINEDA: SKYE REF# [id number] P: [phone] F: [phone] & SHAHANA [facility]:LAURA F: [phone]
[2019-11-10 12:00] VITALS: BP 164/106
--- NOTE | 2019-11-10 13:53 | NUR ---
NURSE NOTES: HD nurse came 9am and pt refused HD, and asked to do in the afternoon, HD nurse came back now again but pt refused HD again, RN spoke with pt x3 and explained risks and benefits but pt refused again. Dr Jose Schaeffer notified and will come to visit pt and F/U. Will continue to monitor.
--- NOTE | 2019-11-10 14:15 | General Progress Note ---
Assessment/Plan Problem List: (1) ESRD (end stage renal disease) on dialysis ICD Codes: N18.6 - End stage renal disease; Z99.2 - Dependence on renal dialysis SNOMED: 058647785 (2) Ascites ICD Codes: R18.8 - Other ascites SNOMED: 315998762 (3) Anemia ICD Codes: D64.9 - Anemia, unspecified SNOMED: 389177610 (4) Volume overload ICD Codes: E87.70 - Fluid overload, unspecified SNOMED: 56730028 Status: stable, unchanged Assessment/Plan: Noncompliant had paracentesis yesterday Dc today Subjective Allergies: Coded Allergies: METRONIDAZOLE (Verified Allergy, Intermediate, 06/24/19) Severe itching, SOB and swelling PIPERACILLIN (Verified Allergy, Intermediate, Itching, 06/24/19) Severe itching, SOB and swelling TAZOBACTAM (Verified Allergy, Intermediate, Itching, 06/24/19) Severe itching, SOB and swelling CEFTRIAXONE (Verified Allergy, Unknown, 06/23/19) KETOROLAC (Verified Allergy, Unknown, 06/23/19) TRAMADOL (Verified Allergy, Unknown, 06/23/19) Uncoded Allergies: contrast-oral and dye (Allergy, Severe, 06/29/19) seizures Subjective refused HD Objective Last 24 Hour Vital Signs Date Time Temp Pulse Resp B/P (MAP) Pulse Ox O2 Delivery O2 Flow Rate FiO2 11/10/19 13:30 101 11/10/19 12:00 97.9 94 20 164/106 (125) 94 11/10/19 09:00 88 156/105 11/10/19 09:00 Room Air 11/10/19 08:00 97.9 88 20 156/105 (122) 97 11/10/19 07:17 92 11/10/19 04:17 97.5 11/10/19 00:00 97.5 85 20 130/80 (97) 97 11/10/19 00:00 89 11/09/19 21:16 82 137/101 11/09/19 21:00 Room Air 11/09/19 20:00 85 11/09/19 20:00 97.5 82 20 137/101 (113) 95 11/09/19 16:00 84 Intake and Output 11/09/19 11/10/19 19:00 07:00 Intake Total 420 ml 300 ml Balance 420 ml 300 ml Intake Oral 420 ml Other 300 ml # Voids 2 Laboratory Tests 11/09/19 14:49: Body Fluid Source Paracentesis, Body Fluid Volume 27, Body Fluid Appearance Cloudy, Body Fluid RBC 5100, Body Fluid Total Nucleated Cells 100, Body Fluid Polynuclear WBCs (%) 3, Body Fluid Mononuclear WBCs (%) 95, Body Fluid Mesothelial Cells (%) 2, Body Fluid Total Protein 3.4, Body Fluid Albumin 1.8 Height (Feet): 4 Height (Inches): 11.00 Weight (Pounds): 110 Jose Schaeffer MD November 10, 2019 14:15
--- NOTE | 2019-11-10 15:04 | Pulmonology Progress Note ---
Subjective ROS Limited/Unobtainable: No Interval Events: None new Constitutional: Reports: no symptoms HEENT: Repors: no symptoms Respiratory: Reports: no symptoms Cardiovascular: Reports: no symptoms Allergies: Coded Allergies: METRONIDAZOLE (Verified Allergy, Intermediate, 06/24/19) Severe itching, SOB and swelling PIPERACILLIN (Verified Allergy, Intermediate, Itching, 06/24/19) Severe itching, SOB and swelling TAZOBACTAM (Verified Allergy, Intermediate, Itching, 06/24/19) Severe itching, SOB and swelling CEFTRIAXONE (Verified Allergy, Unknown, 06/23/19) KETOROLAC (Verified Allergy, Unknown, 06/23/19) TRAMADOL (Verified Allergy, Unknown, 06/23/19) Uncoded Allergies: contrast-oral and dye (Allergy, Severe, 06/29/19) seizures Objective Last 24 Hour Vital Signs Date Time Temp Pulse Resp B/P (MAP) Pulse Ox O2 Delivery O2 Flow Rate FiO2 11/10/19 13:30 101 11/10/19 12:00 97.9 94 20 164/106 (125) 94 11/10/19 09:00 88 156/105 11/10/19 09:00 Room Air 11/10/19 08:00 97.9 88 20 156/105 (122) 97 11/10/19 07:17 92 11/10/19 04:17 97.5 11/10/19 00:00 97.5 85 20 130/80 (97) 97 11/10/19 00:00 89 11/09/19 21:16 82 137/101 11/09/19 21:00 Room Air 11/09/19 20:00 85 11/09/19 20:00 97.5 82 20 137/101 (113) 95 11/09/19 16:00 84 Intake and Output 11/09/19 11/10/19 19:00 07:00 Intake Total 420 ml 300 ml Balance 420 ml 300 ml Intake Oral 420 ml Other 300 ml # Voids 2 General Appearance: no acute distress HEENT: normocephalic Respiratory: chest wall non-tender, decreased breath sounds Cardiovascular: normal peripheral pulses, normal rate Abdomen: normal bowel sounds Extremities: no cyanosis Microbiology Date/Time Source Procedure Growth Status 11/09/19 14:49 Ascities Fluid Gram Stain Pending Resulted 11/09/19 14:49 Ascities Fluid Body Fluid Culture - Preliminary NO GROWTH Resulted Current Medications Medications (Trade) Dose Ordered Sig/Manuela Route PRN Reason Start Time Stop Time Status Last Admin Dose Admin Acetaminophen (Tylenol) 650 mg Q4H PRN ORAL Mild Pain (Pain Scale 1-3) 11/07/19 01:30 12/07/19 01:29 Albumin Human 100 ml @ 200 mls/hr PRN PRN IV sbp<90 during hd 11/09/19 13:45 02/07/20 13:44 Clonidine HCl (Catapres Tab) 0.1 mg Q4H PRN ORAL For High Blood Pressure 11/07/19 01:45 02/05/20 01:44 11/09/19 02:15 Dextrose (Dextrose 50%) 25 ml Q30M PRN IV Hypoglycemia 11/07/19 01:30 02/05/20 01:29 Dextrose (Dextrose 50%) 50 ml Q30M PRN IV Hypoglycemia 11/07/19 01:30 02/05/20 01:29 Epoetin Berhane (Epoetin Berhane(ESRD on dialysis)) 2,000 unit SAT-SAT-SAT SUBQ 11/09/19 21:00 02/07/20 20:59 Epoetin Berhane (Epoetin Berhane(ESRD on dialysis)) 3,000 unit SAT- SUBQ 11/09/19 21:00 02/07/20 20:59 Heparin Sodium (Porcine) (Heparin) 1,000 unit POSTHD INJ 11/09/19 13:45 12/24/19 13:44 Metoprolol Tartrate (Lopressor) 25 mg Q12HR ORAL 11/08/19 21:00 02/06/20 20:59 11/09/19 21:16 Morphine Sulfate (Morphine Sulfate) 2 mg Q4H PRN IVP moderate pain 11/07/19 11:30 11/14/19 11:29 11/09/19 06:19 Morphine Sulfate (Morphine Sulfate) 4 mg Q4H PRN IVP Severe Pain (Pain Scale 7-10) 11/07/19 11:30 11/14/19 11:29 11/10/19 13:20 Ondansetron HCl (Zofran) 4 mg Q6H PRN IVP Nausea & Vomiting 11/07/19 01:30 12/07/19 01:29 Polyethylene Glycol (Miralax) 17 gm DAILYPRN PRN ORAL Constipation 11/07/19 01:30 12/07/19 01:29 Sevelamer Carbonate (Renvela) 800 mg THREE TIMES A DAY ORAL 11/10/19 09:00 02/08/20 08:59 11/10/19 13:20 Sodium Chloride 1,000 ml @ 500 mls/hr Q2H PRN IVLG sbp<90 during hd 11/08/19 01:24 12/08/19 01:23 Vitamin B Complex/ Vit C/Folic Acid (Nephrovite) 1 tab DAILY ORAL 11/07/19 11:30 12/07/19 11:29 11/10/19 09:14 Zolpidem Tartrate (Ambien) 5 mg DAILYPRN PRN ORAL Insomnia 11/07/19 01:30 11/14/19 01:29 Assessment/Plan Assessment/Plan IMPRESSION: 1. ESRD, on dialysis. 2. Ascites. 3. Pulmonary edema. DISCUSSION: The patient will need hemodialysis, however she refused it. Currently, she is saturating well on room air. OK to dc home. Bianca Merchant Omar Syed MD November 10, 2019 15:03
[2019-11-10 16:00] VITALS: BP 139/109
--- NOTE | 2019-11-10 17:50 | NUR ---
NURSE NOTES: pt has discharge order, all D/C assessments and instructions done and pt verbally confirmed to understand all. pt is stable, V/S stable, BP135/99 hr 85, all belongings are with pt but pt refused to sign belongings list. FARRAH PermCath dressing is intact. R femoral triple lumen is working well and is in place as order. pt refused to call [facility]. pt refused to sign all instructions paper, MARIO Mercado and CHILO Kong are aware. skin is intact. hospital provide for pt bus card. pt is getting ready to discharge. will continue to monitor.
--- NOTE | 2019-11-10 18:12 | NUR ---
NURSE NOTES: pt is stable, left hospital RN accompanied pt to out of hospital.
--- NOTE | 2019-11-10 21:13 | General Progress Note ---
Assessment/Plan Status: stable, unchanged Assessment/Plan: Assessment - Ascites - hepatitis C (-), B pending - ESRD - Anemia - umbilical hernia Recommendations - s/p paracentesis - consider more aggressive HD - analyze ascites fluid - monitor labs - fluid restriction Subjective Allergies: Coded Allergies: METRONIDAZOLE (Verified Allergy, Intermediate, 06/24/19) Severe itching, SOB and swelling PIPERACILLIN (Verified Allergy, Intermediate, Itching, 06/24/19) Severe itching, SOB and swelling TAZOBACTAM (Verified Allergy, Intermediate, Itching, 06/24/19) Severe itching, SOB and swelling CEFTRIAXONE (Verified Allergy, Unknown, 06/23/19) KETOROLAC (Verified Allergy, Unknown, 06/23/19) TRAMADOL (Verified Allergy, Unknown, 06/23/19) Uncoded Allergies: contrast-oral and dye (Allergy, Severe, 06/29/19) seizures Subjective seen this am s/p paracentesis feels better tolerating PO Objective Last 24 Hour Vital Signs Date Time Temp Pulse Resp B/P (MAP) Pulse Ox O2 Delivery O2 Flow Rate FiO2 11/10/19 16:00 97.8 80 20 139/109 (119) 100 11/10/19 13:30 101 11/10/19 12:00 97.9 94 20 164/106 (125) 94 11/10/19 09:00 88 156/105 11/10/19 09:00 Room Air 11/10/19 08:00 97.9 88 20 156/105 (122) 97 11/10/19 07:17 92 11/10/19 04:17 97.5 11/10/19 00:00 97.5 85 20 130/80 (97) 97 11/10/19 00:00 89 11/09/19 21:16 82 137/101 Intake and Output 11/09/19 11/10/19 19:00 07:00 Intake Total 420 ml 300 ml Balance 420 ml 300 ml Intake Oral 420 ml Other 300 ml # Voids 2 Height (Feet): 4 Height (Inches): 11.00 Weight (Pounds): 110 Objective Thin woman NCAT supple CTA RR abd now flat, small umbilical hernia no edema nonfocal Elia Newton MD November 10, 2019 21:12
--- NOTE | 2019-11-11 14:04 | NUR ---
*-* INSURANCE *-* UPDATED CLINICALS AND DISCHARGE INSTRUCTIONS HAVE BEEN FAXED TO: MARY PINEDA: SKYE REF# [id number] P: [phone] F: [phone] & SHAHANA DOWNINGC:LAURA F: [phone] Addendum: 11/11/19 at 1404 by GONZALO ROBERTS CM NO DISCHARGE SUMMARY IN THE SYSTEM UNABLE TO FAX TO INS CO. *-*
--- NOTE | 2019-11-12 11:27 | Discharge Summary ---
Discharge Summary Discharge Summary _ DATE OF ADMISSION: 11/06/2019 DATE OF DISCHARGE: 11/10/2019 DISCHARGED BY: Dr. Jose Schaeffer REASON FOR ADMISSION: 29 years old female with past medical history of end-stage renal disease, on hemodialysis, cardiomyopathy, status post AICD, presented to the emergency department for evaluation of lower extremity pain and edema. Patient apparently missed her dialysis and did not have dialysis for 4 days. Patient reported bilateral lower extremity pain and swelling and difficulty with ambulation. Patient also noted distended and diffusely tender abdomen. She complained of some shortness of breath. She has a history of ascites and spontaneous bacterial peritonitis in the past. She did not have peritoneal dialysis for over a year. Upon evaluation patient was afebrile and hemodynamically stable . Pulse oximetry was stable on room air. Laboratory work-up revealed no leukocytosis, hemoglobin 8.7 ,hematocrit 29.4, platelet count 178. Potassium 5.3. BUN 88, creatinine 10.0. Glucose 107. AST 25 , ALT 16. Troponin 0.123, pro BNP over 35,000. EKG revealed sinus rhythm. no acute ischemic changes Albumin 2.6. In emergency department patient had bedside ultrasound of the abdomen, which revealed moderate ascites. Patient initially agreed to paracentesis, but later declined to proceed with the procedure. Patient admitted for further management. CONSULTANTS: [place] history professor Dr. Ruff pulmonary Dr. Rodriguez GI specialist Dr. Newton 2 HOSPITAL COURSE: Patient admitted to telemetry floor. Hemodialysis was arranged and provided with close monitoring of volumes and renal parameters. Panel Cutter followed. Patient started on Epogen. Nephro-Se continued. Pain management was addressed. Abdominal pain was most likely due to ascites. Patient subsequently undergone ultrasound-guided paracentesis on 11/08 yielding 2 L of fluid. Culture of ascitic fluid was negative. Patient remained afebrile, no leukocytosis. Pain management was addressed. Fluid restriction implemented. Panel Cutter followed. ICD was interrogated Blood pressure was managed with beta-simeon. Patient denied chest pain. No changes on EKG. Elevated troponin was most likely due to renal failure. Supplemental oxygen provided and titrated to keep pulse oximetry above 92%. Pulse oximetry remained stable throughout the hospital stay on the room air. Hepatitis panel was negative for hepatitis C infection Patient clinically stabilized and was ready for discharge. FINAL DIAGNOSES: End-stage renal disease on hemodialysis Volume overload Pulmonary edema Ascites, s/p paracentesis Ischemic cardiomyopathy Status post AICD Anemia of chronic kidney disease DISCHARGE MEDICATIONS: See Medication Reconciliation list. DISCHARGE INSTRUCTIONS: Patient was discharged home . Follow-up with outpatient hemodialysis as scheduled. I have been assigned to dictate discharge summary for this account. I was not involved in the patient's management. Maria Kim NP November 12, 2019 11:27
--- NOTE | 2019-11-12 13:33 | NUR ---
*-* INSURANCE *-* DISCHARGE SUMMARY HAS BEEN FAXED TO: MARY PINEDA: SKYE REF# [id number] P: [phone] F: [phone] & SHAHANA DOWNINGC:LAURA F: [phone]
== END 2019-11-10 18:13 | disposition home or self-care (01) | DRG 425 ==
LOC: EMR 19:03 → 2E 22:40 → EDBEDREQ 23:07
PROC: 5A1D70Z Performance of Urinary Filtration, Intermittent, Less than 6 Hours Per Day (ICD-10-PCS; 2019-11-07)
PROC: 0W9G3ZZ Drainage of Peritoneal Cavity, Percutaneous Approach (ICD-10-PCS; principal; 2019-11-09)
DX: E87.79 Other fluid overload (principal); E87.5 Hyperkalemia; I12.0 Hypertensive chronic kidney disease with stage 5 chronic kidney disease or end stage renal disease; N18.6 End stage renal disease; R18.8 Other ascites; Z95.810 Presence of automatic (implantable) cardiac defibrillator; Z88.6 Allergy status to analgesic agent; Z88.1 Allergy status to other antibiotic agents; Z91.041 Radiographic dye allergy status; Z91.15 Patient's noncompliance with renal dialysis; D64.9 Anemia, unspecified; I25.5 Ischemic cardiomyopathy
CPT/HCPCS: 36415; 76942; 80053; 83540; 83550; 83880; 84443; 84484; 85025; 85610; 85730; 86706; 86803; 87070; 87205; 88104; 89051; 93005; 96374; 96375; 99285